=== PATIENT | female | born 1965 | race Caucasian/White ===

== ENCOUNTER → 2016-05-20 15:34 | Outpatient (CLI) | payer OTHER | END | disposition home or self-care (01) | LOC: D.LABREF 15:34 | DX: N39.0 Urinary tract infection, site not specified (principal) ==

== ENCOUNTER → 2018-10-19 16:19 | Outpatient (CLI) | payer OTHER | END | disposition home or self-care (01) | LOC: D.LABREF 16:19 | PROVIDERS: ATTEND Internal Medicine Gastroenterology | DX: Z12.89 Encounter for screening for malignant neoplasm of other sites (principal); Z12.11 Encounter for screening for malignant neoplasm of colon; D75.89 Other specified diseases of blood and blood-forming organs ==